=== PATIENT | female | born 1950 | race Caucasian/White ===

== ENCOUNTER 2022-12-11 07:51 | Inpatient (IN) | payer OTHER, MEDICAID ==
[2022-12-11] MEDS ORDERED: Iopamidol 370 76% 100 ML VIAL ONE (08:37)
[2022-12-11] MEDS ORDERED: Ipratropium/Albuterol 3 ML NEB ONE (08:58)
[2022-12-11] MEDS ORDERED: Magnesium 2 GM/50 ML BAG (IN WATER) ONE (08:58)
[2022-12-11] MEDS ORDERED: methylPREDNISolone Sod Succ/PF 125 MG/2 ML VIAL ONE (08:58)
[2022-12-11] MEDS ORDERED: Aspirin Chewable 81 MG TAB ONE ×2 (08:58→09:06)
[2022-12-11 09:01] LABS: #Eosinphils 0.1 thou/uL (0.0-0.7); #Lymphocytes 1.9 thou/uL (1.20-3.40); #Monocytes 1.1 thou/uL (0.11-0.59); #Neutrophils 7.9 thou/uL (1.40-6.50); %Basophils 0.1 % (0.0-1.0); %Eosinophils 1.3 % (0.0-10.0); %Lymphocytes 16.8 % (21.0-51.0); %Monocytes 10.1 % (0.0-10.0); %Neutrophils 71.6 % (42.0-75.0); Hemoglobin 11.5 g/dL (12.0-16.0); Mean Corpuscular HGB CONC 31.9 g/dL (32.0-36.0); Mean Corpuscular Hemoglobin 29.3 pg (27.0-31.0); Mean Corpuscular Volume 91.8 fl (78.0-98.0); Mean Platelet Volume 8.4 fL (7.4-10.4); Platelet Count 284 10x3/uL (130-400); RBC Distribution Width 13.6 % (11.5-14.5); Red Blood Cell (RBC) Count 3.92 mill/uL (4.20-5.40); White Blood Cell (WBC) Count 11.1 10x3/uL (4.8-10.8)
[2022-12-11] MEDS ORDERED: Vancomycin 1 GM/200 ML (FROZEN) BAG ONE (09:07)
[2022-12-11] MEDS ORDERED: Cefepime 2 GM VIAL ONE (09:07)
[2022-12-11 09:30] LABS: ALT (SGPT) 12 U/L (8-55); AST (SGOT) 19 U/L (5-34); Alkaline Phosphatase 108 U/L (40-110); Anion Gap 16 mmol/L (10-20); BUN (Urea Nitrogen) 18 mg/dL (9.8-20.1); Bilirubin, Total 0.4 mg/dL (0.2-1.2); Calc. Creatinine Clearance 0 mL/min (70-130); Calcium 9.3 mg/dL (7.8-10.44); Carbon Dioxide 27 mmol/L (23-31); Chloride 99 mmol/L (98-107); Estimated GFR 64; Glucose 100 mg/dL (83-110); Lipase 153 U/L (8-78); Potassium 4.1 mmol/L (3.5-5.1); Sodium 138 mmol/L (136-145)
[2022-12-11 09:58] LABS: Bacteria/HPF 4+ HPF (None Seen); Bilirubin Negative (Negative); Blood, Urine Negative (Negative); Clarity Clear (Clear); Glucose, Urine (Dipstick) Greater than 1000 mg/dL (Negative); Ketone, Urine Negative (Negative); Leukocyte 75 Leu/uL (Negative); Nitrite 2+ (Negative); Protein, Urine (Dipstick) 10 mg/dL (Neg-Trace); RBC/HPF 0-3 HPF (0-3); Specific Gravity, Urine 1.016 (1.002-1.036); Squamous Epithelial 0-3 HPF (0-3); Urobilinogen Normal mg/dL (Less than 2)
[2022-12-11 10:15] LABS: Actual Bicarbonate (HCO3v) 26 mEq/L (22-28); Base Excess 3.6 mEq/L (-2.0 to +3.0); Calcium, Ionized (venous) 0.99 mmol/L (1.16-1.32); Chloride (VBG) 100 mmol/L (98-106); Hemoglobin (Hb) 12.6 g/dL (11.7-16.1); Potassium (VBG) 3.95 mmol/L (3.70-5.30); Sodium 133.8 mmol/L (133-146); pH (venous) 7.53 (7.32-7.43)
[2022-12-11] MEDS ORDERED: Calcium Carbonate 500 MG ChewTAB PO PRN ×2 (11:30→21:13)
[2022-12-11] MEDS ORDERED: Senokot S 8.6-50 MG TAB PO PRN (11:30)
[2022-12-11] MEDS ORDERED: Acetaminophen 325 MG TAB PO PRN (11:30)
[2022-12-11] MEDS ORDERED: Ondansetron PF 4 MG/2 ML Vial IVP PRN ×2 (11:30→21:12)
[2022-12-11] MEDS ORDERED: Ipratropium/Albuterol 3 ML NEB NEB PRN (11:35)
[2022-12-11] MEDS ORDERED: Benzonatate 100 MG CAP PO PRN (11:43)
[2022-12-11] MEDS ORDERED: Polyethylene Glycol 3350 17 GM Packet PO PRN ×2 (12:03→21:18)
[2022-12-11 13:10] LABS: Troponin I Less than 0.010 ng/mL (< 0.028)
[2022-12-11 13:23] LABS: SARS-CoV-2 NAA Rapid Test Not Detected (NotDetected)
[2022-12-11 14:31] VITALS: BMI 43.3
[2022-12-11] MEDS: Sodium Chloride 0.9% 1,000 ML IV SCH (16:05)
[2022-12-11] MEDS ORDERED: Carvedilol 6.25 MG TAB PO SCH (17:00)
[2022-12-11] MEDS: Azithromycin 500 MG in Sodium Chloride 0.9% 250 ML 250 ML IVPB SCH (17:23)
[2022-12-11] MEDS ORDERED: Cefepime 2 GM in Sodium Chloride 0.9% 100 ML IVPB SCH (18:00)
[2022-12-11] MEDS ORDERED: Gabapentin 300 MG CAP PO SCH ×2 (21:00→21:30)
[2022-12-11] MEDS ORDERED: Sacubitril 49 MG/Valsartan 51 MG TABLET PO SCH ×2 (21:00→21:30)
[2022-12-11] MEDS ORDERED: Rosuvastatin 10 MG TAB PO SCH ×2 (21:00→21:30)
[2022-12-11] MEDS ORDERED: Nortriptyline 10 MG CAP PO SCH ×2 (21:00→21:30)
[2022-12-11] MEDS ORDERED: methylPREDNISolone Sod Succ 40 MG VIAL IVP SCH ×2 (21:00→21:30)
[2022-12-11] MEDS: Acetaminophen 325 MG TAB PO PRN (21:38)
[2022-12-11] MEDS: Benzonatate 100 MG CAP PO PRN (21:39)
[2022-12-11] MEDS ORDERED: Dextrose 50% Abboject 50 ML SYRINGE SLOW IVP PRN (22:04)
[2022-12-11] MEDS ORDERED: Dextrose 5% in Water 1,000 ML IV PRN (22:04)
[2022-12-11] MEDS: Ipratropium/Albuterol 3 ML NEB NEB PRN (22:07)
[2022-12-11] MEDS: HumaLOG 300 UNITS/3 ML VIAL SC PRN (23:23)
[2022-12-12] MEDS: Sodium Chloride 0.9% 1,000 ML IV SCH (05:10)
[2022-12-12] MEDS: HumaLOG 300 UNITS/3 ML VIAL SC PRN ×2 (05:57→17:48)
[2022-12-12] MEDS ORDERED: Empagliflozin 10 MG TAB PO SCH (09:00)
[2022-12-12] MEDS ORDERED: Venlafaxine HCl XR 75 MG CAP PO SCH (09:00)
[2022-12-12] MEDS ORDERED: Aspirin 81 mg Enteric Coated Tablet PO SCH (09:00)
[2022-12-12] MEDS ORDERED: Cefepime 1 GM in Sodium Chloride 0.9% 100 ML IVPB SCH (09:00)
[2022-12-12] MEDS: Gabapentin 300 MG CAP PO SCH ×2 (09:06→20:50)
[2022-12-12] MEDS: methylPREDNISolone Sod Succ 40 MG VIAL IVP SCH ×3 (09:06→22:38)
[2022-12-12] MEDS: Cefepime 1 GM in Sodium Chloride 0.9% 100 ML IVPB SCH ×3 (09:06→22:37)
[2022-12-12] MEDS: Carvedilol 6.25 MG TAB PO SCH ×2 (09:07→17:48)
[2022-12-12] MEDS: Empagliflozin 10 MG TAB PO SCH (09:07)
[2022-12-12] MEDS: Aspirin 81 mg Enteric Coated Tablet PO SCH (09:07)
[2022-12-12] MEDS: Venlafaxine HCl XR 75 MG CAP PO SCH (09:07)
[2022-12-12] MEDS: Sacubitril 49 MG/Valsartan 51 MG TABLET PO SCH ×2 (09:08→20:51)
[2022-12-12] MEDS: Acetaminophen 325 MG TAB PO PRN ×2 (13:20→23:28)
[2022-12-12] MEDS: Ipratropium/Albuterol 3 ML NEB NEB PRN (13:20)
[2022-12-12] MEDS: Hydroxychloroquine Sulfate 200 MG TAB PO SCH (13:20)
[2022-12-12] MEDS: Benzonatate 100 MG CAP PO PRN ×2 (13:20→22:49)
[2022-12-12] MEDS: Azithromycin 500 MG in Sodium Chloride 0.9% 250 ML 250 ML IVPB SCH (15:46)
[2022-12-12] MEDS: Rosuvastatin 10 MG TAB PO SCH (20:51)
[2022-12-12] MEDS: Nortriptyline 10 MG CAP PO SCH (20:51)
[2022-12-13 05:01] LABS: #Basophils 0.1 thou/uL (0.0-0.2); #Lymphocytes 0.7 thou/uL (1.20-3.40); #Monocytes 0.4 thou/uL (0.11-0.59); #Neutrophils 10.7 thou/uL (1.40-6.50); %Basophils 0.5 % (0.0-1.0); %Eosinophils 0.1 % (0.0-10.0); %Lymphocytes 6.1 % (21.0-51.0); %Monocytes 3.1 % (0.0-10.0); %Neutrophils 90.2 % (42.0-75.0); Hemoglobin 11.3 g/dL (12.0-16.0); Mean Corpuscular HGB CONC 32.8 g/dL (32.0-36.0); Mean Corpuscular Hemoglobin 30.4 pg (27.0-31.0); Mean Corpuscular Volume 92.7 fl (78.0-98.0); Mean Platelet Volume 8.8 fL (7.4-10.4); Platelet Count 273 10x3/uL (130-400); RBC Distribution Width 13.5 % (11.5-14.5); Red Blood Cell (RBC) Count 3.71 mill/uL (4.20-5.40); White Blood Cell (WBC) Count 11.8 10x3/uL (4.8-10.8)
[2022-12-13 05:20] LABS: Anion Gap 15 mmol/L (10-20); BUN (Urea Nitrogen) 17 mg/dL (9.8-20.1); Calc. Creatinine Clearance 93 mL/min (70-130); Carbon Dioxide 20 mmol/L (23-31); Chloride 106 mmol/L (98-107); Estimated GFR 78; Glucose 243 mg/dL (83-110); Magnesium 2.1 mg/dL (1.6-2.6); Sodium 137 mmol/L (136-145)
[2022-12-13] MEDS: Aspirin 81 mg Enteric Coated Tablet PO SCH (09:44)
[2022-12-13] MEDS: Cefepime 1 GM in Sodium Chloride 0.9% 100 ML IVPB SCH ×2 (09:44→21:18)
[2022-12-13] MEDS: Carvedilol 6.25 MG TAB PO SCH ×2 (09:44→16:42)
[2022-12-13] MEDS: Gabapentin 300 MG CAP PO SCH ×2 (09:45→21:18)
[2022-12-13] MEDS: Empagliflozin 10 MG TAB PO SCH (09:45)
[2022-12-13] MEDS: Venlafaxine HCl XR 75 MG CAP PO SCH (09:46)
[2022-12-13] MEDS: Sacubitril 49 MG/Valsartan 51 MG TABLET PO SCH ×2 (09:46→21:18)
[2022-12-13] MEDS: Hydroxychloroquine Sulfate 200 MG TAB PO SCH (09:47)
[2022-12-13] MEDS: methylPREDNISolone Sod Succ 40 MG VIAL IVP SCH ×2 (09:47→21:17)
[2022-12-13] MEDS ORDERED: Furosemide 40 MG TAB PO SCH (12:45)
[2022-12-13] MEDS: Azithromycin 500 MG in Sodium Chloride 0.9% 250 ML 250 ML IVPB SCH (15:34)
[2022-12-13] MEDS: Artificial Tear Sol 15 ML BOT EA EYE PRN (16:42)
[2022-12-13] MEDS: Acetaminophen 325 MG TAB PO PRN (16:44)
[2022-12-13] MEDS: HumaLOG 300 UNITS/3 ML VIAL SC PRN ×2 (17:58→21:21)
[2022-12-13] MEDS: Senokot S 8.6-50 MG TAB PO PRN (17:59)
[2022-12-13] MEDS: Rosuvastatin 10 MG TAB PO SCH (21:18)
[2022-12-13] MEDS: Nortriptyline 10 MG CAP PO SCH (21:18)
[2022-12-14] MEDS: Acetaminophen 325 MG TAB PO PRN (03:23)
[2022-12-14] MEDS: Ipratropium/Albuterol 3 ML NEB NEB PRN (03:24)
[2022-12-14 03:58] LABS: #Lymphocytes 1.1 thou/uL (1.20-3.40); #Monocytes 0.5 thou/uL (0.11-0.59); #Neutrophils 8.7 thou/uL (1.40-6.50); %Basophils 0.1 % (0.0-1.0); %Eosinophils 0.1 % (0.0-10.0); %Lymphocytes 10.4 % (21.0-51.0); %Monocytes 4.4 % (0.0-10.0); Hemoglobin 11.8 g/dL (12.0-16.0); Mean Corpuscular HGB CONC 33.2 g/dL (32.0-36.0); Mean Corpuscular Hemoglobin 30.5 pg (27.0-31.0); Mean Corpuscular Volume 91.8 fl (78.0-98.0); Mean Platelet Volume 8.8 fL (7.4-10.4); Platelet Count 270 10x3/uL (130-400); RBC Distribution Width 13.2 % (11.5-14.5); Red Blood Cell (RBC) Count 3.88 mill/uL (4.20-5.40); White Blood Cell (WBC) Count 10.2 10x3/uL (4.8-10.8)
[2022-12-14 04:22] LABS: Anion Gap 16 mmol/L (10-20); BUN (Urea Nitrogen) 20 mg/dL (9.8-20.1); Calc. Creatinine Clearance 95 mL/min (70-130); Calcium 9.3 mg/dL (7.8-10.44); Carbon Dioxide 23 mmol/L (23-31); Chloride 100 mmol/L (98-107); Estimated GFR 83; Glucose 207 mg/dL (83-110); Magnesium 1.9 mg/dL (1.6-2.6); Potassium 3.8 mmol/L (3.5-5.1); Sodium 135 mmol/L (136-145)
[2022-12-14] MEDS: HumaLOG 300 UNITS/3 ML VIAL SC PRN ×2 (06:06→21:02)
[2022-12-14] MEDS: Carvedilol 6.25 MG TAB PO SCH ×2 (10:20→18:18)
[2022-12-14] MEDS: Azithromycin 250 MG TAB PO SCH (10:21)
[2022-12-14] MEDS: Aspirin 81 mg Enteric Coated Tablet PO SCH (10:21)
[2022-12-14] MEDS: methylPREDNISolone Sod Succ 40 MG VIAL IVP SCH ×2 (10:22→21:01)
[2022-12-14] MEDS: Empagliflozin 10 MG TAB PO SCH (10:22)
[2022-12-14] MEDS: Gabapentin 300 MG CAP PO SCH ×2 (10:23→21:01)
[2022-12-14] MEDS: Furosemide 40 MG TAB PO SCH (10:23)
[2022-12-14] MEDS: Venlafaxine HCl XR 75 MG CAP PO SCH (10:23)
[2022-12-14] MEDS: Sacubitril 49 MG/Valsartan 51 MG TABLET PO SCH ×2 (10:24→21:01)
[2022-12-14] MEDS: Hydroxychloroquine Sulfate 200 MG TAB PO SCH (10:26)
[2022-12-14] MEDS ORDERED: Furosemide 40 MG/4 ML VIAL SLOW IVP SCH (11:00)
[2022-12-14] MEDS: Cefepime 1 GM in Sodium Chloride 0.9% 100 ML IVPB SCH ×2 (16:37→21:01)
[2022-12-14] MEDS: Nortriptyline 10 MG CAP PO SCH (21:01)
[2022-12-14] MEDS: Rosuvastatin 10 MG TAB PO SCH (21:01)
[2022-12-15] MEDS: Acetaminophen 325 MG TAB PO PRN ×2 (04:32→20:24)
[2022-12-15 04:46] LABS: #Lymphocytes 1.3 thou/uL (1.20-3.40); #Monocytes 0.6 thou/uL (0.11-0.59); #Neutrophils 8.3 thou/uL (1.40-6.50); %Basophils 0.1 % (0.0-1.0); %Eosinophils 0.1 % (0.0-10.0); %Lymphocytes 12.7 % (21.0-51.0); %Monocytes 5.5 % (0.0-10.0); %Neutrophils 81.6 % (42.0-75.0); Hemoglobin 13.1 g/dL (12.0-16.0); Mean Corpuscular HGB CONC 32.9 g/dL (32.0-36.0); Mean Corpuscular Hemoglobin 29.9 pg (27.0-31.0); Mean Corpuscular Volume 90.9 fl (78.0-98.0); Mean Platelet Volume 8.9 fL (7.4-10.4); Platelet Count 277 10x3/uL (130-400); RBC Distribution Width 13.3 % (11.5-14.5); Red Blood Cell (RBC) Count 4.36 mill/uL (4.20-5.40); White Blood Cell (WBC) Count 10.2 10x3/uL (4.8-10.8)
[2022-12-15 05:11] LABS: Anion Gap 18 mmol/L (10-20); BUN (Urea Nitrogen) 25 mg/dL (9.8-20.1); Calc. Creatinine Clearance 77 mL/min (70-130); Calcium 9.6 mg/dL (7.8-10.44); Carbon Dioxide 26 mmol/L (23-31); Chloride 95 mmol/L (98-107); Estimated GFR 66; Glucose 265 mg/dL (83-110); Magnesium 1.8 mg/dL (1.6-2.6); Potassium 3.6 mmol/L (3.5-5.1); Sodium 135 mmol/L (136-145)
[2022-12-15] MEDS: Carvedilol 6.25 MG TAB PO SCH ×2 (09:57→17:39)
[2022-12-15] MEDS: Gabapentin 300 MG CAP PO SCH ×2 (10:01→20:20)
[2022-12-15] MEDS: Aspirin 81 mg Enteric Coated Tablet PO SCH (10:03)
[2022-12-15] MEDS: Venlafaxine HCl XR 75 MG CAP PO SCH (10:03)
[2022-12-15] MEDS: Azithromycin 250 MG TAB PO SCH (10:04)
[2022-12-15] MEDS: Empagliflozin 10 MG TAB PO SCH (10:05)
[2022-12-15] MEDS: Sacubitril 49 MG/Valsartan 51 MG TABLET PO SCH ×2 (10:05→20:41)
[2022-12-15] MEDS: Furosemide 40 MG TAB PO SCH (10:05)
[2022-12-15] MEDS: Cefepime 1 GM in Sodium Chloride 0.9% 100 ML IVPB SCH ×2 (10:06→20:18)
[2022-12-15] MEDS: Artificial Tear Sol 15 ML BOT EA EYE PRN (10:08)
[2022-12-15] MEDS: Hydroxychloroquine Sulfate 200 MG TAB PO SCH (10:15)
[2022-12-15] MEDS: methylPREDNISolone Sod Succ 40 MG VIAL IVP SCH ×2 (10:15→20:22)
[2022-12-15] MEDS ORDERED: Potassium Chloride 20 MEQ TAB PO SCH (10:45)
[2022-12-15] MEDS ORDERED: Magnesium 2 GM/50 ML(in water) 2 GM in Premix Bag 1 BAG IVPB SCH (10:45)
[2022-12-15] MEDS: Benzonatate 100 MG CAP PO PRN ×2 (12:16→20:50)
[2022-12-15] MEDS: HumaLOG 300 UNITS/3 ML VIAL SC PRN ×2 (12:16→20:25)
[2022-12-15] MEDS ORDERED: guaiFENesin ER 600 MG TAB PO SCH (12:45)
[2022-12-15] MEDS ORDERED: Furosemide 20 MG/2 ML VIAL SLOW IVP SCH (14:00)
[2022-12-15] MEDS: guaiFENesin ER 600 MG TAB PO SCH (20:21)
[2022-12-15] MEDS: Rosuvastatin 10 MG TAB PO SCH (20:22)
[2022-12-15] MEDS: Nortriptyline 10 MG CAP PO SCH (20:41)
[2022-12-15] MEDS ORDERED: Insulin Glargine 30 UNITS/0.3 ML VIAL SC SCH (21:00)
[2022-12-16] MEDS: HumaLOG 300 UNITS/3 ML VIAL SC PRN ×3 (05:53→17:01)
[2022-12-16 05:57] VITALS: TEMP 97.6
[2022-12-16 06:56] LABS: #Lymphocytes 1.5 thou/uL (1.20-3.40); #Monocytes 0.7 thou/uL (0.11-0.59); #Neutrophils 8.4 thou/uL (1.40-6.50); %Basophils 0.1 % (0.0-1.0); %Lymphocytes 14.3 % (21.0-51.0); %Monocytes 6.1 % (0.0-10.0); %Neutrophils 79.5 % (42.0-75.0); Mean Corpuscular HGB CONC 32.2 g/dL (32.0-36.0); Mean Corpuscular Hemoglobin 29.5 pg (27.0-31.0); Mean Corpuscular Volume 91.7 fl (78.0-98.0); Mean Platelet Volume 8.8 fL (7.4-10.4); Platelet Count 287 10x3/uL (130-400); RBC Distribution Width 13.5 % (11.5-14.5); Red Blood Cell (RBC) Count 4.41 mill/uL (4.20-5.40); White Blood Cell (WBC) Count 10.6 10x3/uL (4.8-10.8)
[2022-12-16 07:19] LABS: Anion Gap 15 mmol/L (10-20); BUN (Urea Nitrogen) 29 mg/dL (9.8-20.1); Calc. Creatinine Clearance 82 mL/min (70-130); Calcium 9.3 mg/dL (7.8-10.44); Carbon Dioxide 29 mmol/L (23-31); Chloride 94 mmol/L (98-107); Estimated GFR 71; Glucose 275 mg/dL (83-110); Potassium 3.9 mmol/L (3.5-5.1); Sodium 134 mmol/L (136-145)
[2022-12-16] MEDS: Carvedilol 6.25 MG TAB PO SCH ×2 (08:26→17:01)
[2022-12-16] MEDS: Furosemide 40 MG TAB PO SCH (08:27)
[2022-12-16] MEDS: Sacubitril 49 MG/Valsartan 51 MG TABLET PO SCH (08:27)
[2022-12-16] MEDS: Azithromycin 250 MG TAB PO SCH (08:27)
[2022-12-16] MEDS: Empagliflozin 10 MG TAB PO SCH (08:27)
[2022-12-16] MEDS: Gabapentin 300 MG CAP PO SCH (08:27)
[2022-12-16] MEDS: Hydroxychloroquine Sulfate 200 MG TAB PO SCH (08:28)
[2022-12-16] MEDS: methylPREDNISolone Sod Succ 40 MG VIAL IVP SCH (08:28)
[2022-12-16] MEDS: Cefepime 1 GM in Sodium Chloride 0.9% 100 ML IVPB SCH (08:28)
[2022-12-16] MEDS: Aspirin 81 mg Enteric Coated Tablet PO SCH (08:28)
[2022-12-16] MEDS: Venlafaxine HCl XR 75 MG CAP PO SCH (08:28)
[2022-12-16] MEDS: guaiFENesin ER 600 MG TAB PO SCH (08:28)
[2022-12-16] MEDS: Benzonatate 100 MG CAP PO PRN (09:28)
[2022-12-16] MEDS: Senokot S 8.6-50 MG TAB PO PRN (11:35)
[2022-12-16 16:51] VITALS: BP 127/59
== END 2022-12-16 18:50 | DRG 194 ==
LOC: SUATTDRO 07:51 → ERS 07:51 → 2NO 11:21 → UNDODISIN 15:26 → T4-B 12-15 16:45
PROVIDERS: ADMIT Internal Medicine; ATTEND Internal Medicine
DX: J18.9 Pneumonia, unspecified organism (principal); N39.0 Urinary tract infection, site not specified; I25.10 Atherosclerotic heart disease of native coronary artery without angina pectoris; K21.9 Gastro-esophageal reflux disease without esophagitis; K59.00 Constipation, unspecified; E78.5 Hyperlipidemia, unspecified; I11.0 Hypertensive heart disease with heart failure; F41.9 Anxiety disorder, unspecified; F32.A Depression, unspecified; M06.9 Rheumatoid arthritis, unspecified; I50.9 Heart failure, unspecified; Z95.1 Presence of aortocoronary bypass graft; Z98.51 Tubal ligation status; Z88.8 Allergy status to other drugs, medicaments and biological substances; Z79.82 Long term (current) use of aspirin; Z79.899 Other long term (current) drug therapy
CPT/HCPCS: 36415; 36416; 51701; 71045; 71275; 74177; 76536; 80048; 80053; 81003; 81015; 82010; 82805; 83605; 83690; 83735; 83880; 84145; 84484; 85025; 87040; 87070; 87077; 87086; 87186; 87205; 93005; 94640; 96365; 96367; 96368; 96375; J0456; J0692; J1650; J1815; J1940; J1956; J2920; J2930; J3370-JW; J3475; J3490; J7050; J7620; Q9967

== ENCOUNTER 2023-08-05 00:44 | Inpatient (IN) | payer OTHER, MEDICAID, MEDICARE ==
[2023-08-05 01:38] LABS: #Eosinphils 0.2 thou/uL (0.0-0.7); #Monocytes 0.8 thou/uL (0.11-0.59); #Neutrophils 3.6 thou/uL (1.40-6.50); %Basophils 0.4 % (0.0-1.0); %Lymphocytes 41.7 % (21.0-51.0); %Monocytes 9.7 % (0.0-10.0); %Neutrophils 46.1 % (42.0-75.0); Hematocrit 31.5 % (36.0-47.0); Hemoglobin 10.2 g/dL (12.0-16.0); Mean Corpuscular HGB CONC 32.4 g/dL (32.0-36.0); Mean Corpuscular Hemoglobin 30.6 pg (27.0-31.0); Mean Corpuscular Volume 94.6 fl (78.0-98.0); Mean Platelet Volume 10.6 fL (7.4-10.4); Platelet Count 252 10x3/uL (130-400); RBC Distribution Width 14.6 % (11.5-14.5); Red Blood Cell (RBC) Count 3.33 mill/uL (4.20-5.40); White Blood Cell (WBC) Count 7.9 10x3/uL (4.8-10.8)
[2023-08-05 01:52] LABS: PTT 27.1 sec (22.9-36.1); Prothrombin Time 13.2 sec (12.0-14.7)
[2023-08-05 02:02] LABS: ALT (SGPT) 13 U/L (8-55); AST (SGOT) 16 U/L (5-34); Albumin 4.4 g/dL (3.4-4.8); Alkaline Phosphatase 132 U/L (40-110); Anion Gap 16 mmol/L (10-20); BUN (Urea Nitrogen) 45 mg/dL (9.8-20.1); Bilirubin, Total 0.3 mg/dL (0.2-1.2); Calc. Creatinine Clearance 0 mL/min (70-130); Calcium 9.9 mg/dL (7.8-10.44); Carbon Dioxide 25 mmol/L (23-31); Chloride 98 mmol/L (98-107); Estimated GFR 37; Globulin 2.9 g/dL (2.4-3.5); Glucose 173 mg/dL (83-110); Potassium 4.3 mmol/L (3.5-5.1); Protein, Total 7.3 g/dL (5.8-8.1); Sodium 135 mmol/L (136-145)
[2023-08-05] MEDS ORDERED: Acetaminophen 500 MG TAB ONE (02:29)
[2023-08-05] MEDS ORDERED: diphenhydrAMINE 50 MG/ML VIAL ONE (03:27)
[2023-08-05] MEDS ORDERED: diphenhydrAMINE 12.5 MG/5 ML UDCUP ONE (03:27)
[2023-08-05] MEDS ORDERED: Prochlorperazine 10 MG/2 ML VIAL ONE (03:27)
[2023-08-05 03:59] LABS: Magnesium 2.3 mg/dL (1.6-2.6)
[2023-08-05 04:05] LABS: Troponin I Less than 0.010 ng/mL (< 0.028)
[2023-08-05 05:18] VITALS: BMI 39.5
[2023-08-05 05:30] LABS: Troponin I Less than 0.010 ng/mL (< 0.028)
[2023-08-05] MEDS ORDERED: Senokot 8.6 MG TAB PO PRN (08:12)
[2023-08-05] MEDS ORDERED: Metoclopramide HCl 10 MG/2 ML VIAL IVP SCH ×2 (08:15→18:00)
[2023-08-05] MEDS ORDERED: Sodium Chloride 0.9% 1,000 ML IV SCH (08:15)
[2023-08-05] MEDS ORDERED: Metoclopramide HCl 10 MG/2 ML VIAL ONE (08:22)
[2023-08-05] MEDS ORDERED: SUMAtriptan Succinate 6 MG/0.5 ML VIAL ONE ×2 (08:22→09:41)
[2023-08-05] MEDS: SUMAtriptan Succinate 6 MG/0.5 ML VIAL SC PRN ×2 (08:27→09:49)
[2023-08-05] MEDS ORDERED: Cholecalciferol 1,000 UNITS (25 MCG) TAB ONE (08:31)
[2023-08-05] MEDS ORDERED: Aspirin Chewable 81 MG TAB ONE (08:31)
[2023-08-05 08:35] LABS: Troponin I Less than 0.010 ng/mL (< 0.028)
[2023-08-05] MEDS: Aspirin Chewable 81 MG TAB PO SCH (08:59)
[2023-08-05] MEDS: Gabapentin 300 MG CAP PO SCH ×2 (09:00→20:19)
[2023-08-05] MEDS: Cholecalciferol 1,000 UNITS (25 MCG) TAB PO SCH (09:00)
[2023-08-05] MEDS: Carvedilol 6.25 MG TAB PO SCH ×2 (09:00→20:21)
[2023-08-05] MEDS: Sacubitril 49 MG/Valsartan 51 MG TABLET PO SCH ×2 (09:06→20:20)
[2023-08-05] MEDS: Heparin 5,000 UNITS/ML VIAL SC SCH ×3 (09:06→20:22)
[2023-08-05] MEDS: Hydroxychloroquine Sulfate 200 MG TAB PO SCH (09:06)
[2023-08-05] MEDS: Venlafaxine 75 MG TAB PO SCH (09:07)
[2023-08-05 09:34] LABS: Bilirubin Negative (Negative); Blood, Urine Negative (Negative); CAUTI Indications for Culture Alt mental st,lethar; Clarity Clear (Clear); Glucose, Urine (Dipstick) >=1000 mg/dL (Negative); Ketone, Urine Negative (Negative); Leukocyte 500 Leu/uL (Negative); Nitrite Negative (Negative); Protein, Urine (Dipstick) Negative (Neg-Trace); RBC/HPF 0-3 HPF (0-3); Specific Gravity, Urine 1.023 (1.002-1.036); Squamous Epithelial 0-3 HPF (0-3); Urobilinogen Normal mg/dL (Less than 2); WBC/HPF Greater than 50 HPF (0-3)
[2023-08-05 09:35] LABS: Bacteria/HPF 1+ HPF (None Seen)
[2023-08-05 09:36] LABS: Urine Culture Reflex Yes Yes
[2023-08-05] MEDS ORDERED: Acetaminophen 325 MG TAB ONE (09:40)
[2023-08-05] MEDS: Sodium Chloride 0.9% 1,000 ML IV SCH ×2 (09:44→16:16)
[2023-08-05] MEDS: Acetaminophen 325 MG TAB PO PRN ×3 (09:50→20:20)
[2023-08-05] MEDS ORDERED: Iopamidol-370 76% 500 ML MDV (1 ML CHARGE) ONE (13:04)
[2023-08-05] MEDS ORDERED: Valproate Sodium 500 MG in Sodium Chloride 0.9% 100 ML IVPB SCH (17:45)
[2023-08-05] MEDS ORDERED: Sodium Chloride 0.9% 500 ML IV SCH (18:00)
[2023-08-05] MEDS: Rosuvastatin 5 MG TAB PO SCH (20:19)
[2023-08-05] MEDS: Loratadine 10 MG TAB PO SCH (20:21)
[2023-08-05] MEDS: Nortriptyline 10 MG CAP PO SCH (20:22)
[2023-08-06] MEDS ORDERED: Ketorolac Tromethamine 30 MG/ML VIAL IVP SCH ×2 (00:30→08:15)
[2023-08-06 04:17] LABS: #Eosinphils 0.2 thou/uL (0.0-0.7); #Monocytes 0.7 thou/uL (0.11-0.59); #Neutrophils 3.7 thou/uL (1.40-6.50); %Basophils 0.3 % (0.0-1.0); %Eosinophils 2.4 % (0.0-10.0); %Lymphocytes 30.7 % (21.0-51.0); %Monocytes 10.5 % (0.0-10.0); Hematocrit 28.7 % (36.0-47.0); Hemoglobin 9.3 g/dL (12.0-16.0); Mean Corpuscular HGB CONC 32.4 g/dL (32.0-36.0); Mean Corpuscular Hemoglobin 30.7 pg (27.0-31.0); Mean Corpuscular Volume 94.7 fl (78.0-98.0); Mean Platelet Volume 10.6 fL (7.4-10.4); Platelet Count 232 10x3/uL (130-400); RBC Distribution Width 14.7 % (11.5-14.5); Red Blood Cell (RBC) Count 3.03 mill/uL (4.20-5.40); White Blood Cell (WBC) Count 6.7 10x3/uL (4.8-10.8)
[2023-08-06] MEDS: Acetaminophen 325 MG TAB PO PRN ×3 (04:42→20:16)
[2023-08-06 04:45] LABS: ALT (SGPT) 15 U/L (8-55); AST (SGOT) 28 U/L (5-34); Albumin 3.8 g/dL (3.4-4.8); Alkaline Phosphatase 100 U/L (40-110); Anion Gap 12 mmol/L (10-20); BUN (Urea Nitrogen) 33 mg/dL (9.8-20.1); Bilirubin, Total 0.2 mg/dL (0.2-1.2); Calc. Creatinine Clearance 63 mL/min (70-130); Calcium 8.8 mg/dL (7.8-10.44); Carbon Dioxide 25 mmol/L (23-31); Chloride 107 mmol/L (98-107); Estimated GFR 46; Globulin 2.5 g/dL (2.4-3.5); Glucose 114 mg/dL (83-110); Potassium 4.4 mmol/L (3.5-5.1); Protein, Total 6.3 g/dL (5.8-8.1); Sodium 140 mmol/L (136-145)
[2023-08-06] MEDS ORDERED: Dexamethasone 10 MG/ML VIAL SLOW IVP SCH (08:15)
[2023-08-06] MEDS ORDERED: Sodium Chloride 0.9% 1,000 ML IV SCH (08:15)
[2023-08-06] MEDS ORDERED: Metoclopramide HCl 10 MG/2 ML VIAL IVP SCH (08:15)
[2023-08-06] MEDS: Sodium Chloride 0.9% 1,000 ML IV SCH ×3 (08:22→17:39)
[2023-08-06] MEDS: Hydroxychloroquine Sulfate 200 MG TAB PO SCH (08:52)
[2023-08-06] MEDS: Venlafaxine 75 MG TAB PO SCH (08:52)
[2023-08-06] MEDS: Gabapentin 300 MG CAP PO SCH ×2 (08:53→20:16)
[2023-08-06] MEDS: Cholecalciferol 1,000 UNITS (25 MCG) TAB PO SCH (08:53)
[2023-08-06] MEDS: Heparin 5,000 UNITS/ML VIAL SC SCH ×3 (08:53→20:16)
[2023-08-06] MEDS: Aspirin Chewable 81 MG TAB PO SCH (08:53)
[2023-08-06] MEDS: Carvedilol 6.25 MG TAB PO SCH ×2 (09:02→20:15)
[2023-08-06] MEDS: Sacubitril 49 MG/Valsartan 51 MG TABLET PO SCH ×2 (09:03→20:16)
[2023-08-06] MEDS ORDERED: Lorazepam 2 MG/ML VIAL SLOW IVP PRN (11:00)
[2023-08-06] MEDS: Prochlorperazine Edisylate 10 MG in Sodium Chloride 0.9% 50 ML IVPB SCH ×2 (12:57→17:39)
[2023-08-06] MEDS: diphenhydrAMINE 50 MG/ML VIAL IVP SCH ×2 (12:57→17:39)
[2023-08-06] MEDS: Nortriptyline 10 MG CAP PO SCH (20:15)
[2023-08-06] MEDS: Rosuvastatin 5 MG TAB PO SCH (20:15)
[2023-08-06] MEDS: Loratadine 10 MG TAB PO SCH (20:16)
[2023-08-07] MEDS: Prochlorperazine Edisylate 10 MG in Sodium Chloride 0.9% 50 ML IVPB SCH ×3 (00:14→11:53)
[2023-08-07] MEDS: diphenhydrAMINE 50 MG/ML VIAL IVP SCH ×2 (00:14→05:39)
[2023-08-07] MEDS: Sodium Chloride 0.9% 1,000 ML IV SCH ×3 (00:15→16:12)
[2023-08-07] MEDS: Sacubitril 49 MG/Valsartan 51 MG TABLET PO SCH (08:25)
[2023-08-07] MEDS: Hydroxychloroquine Sulfate 200 MG TAB PO SCH (08:25)
[2023-08-07] MEDS: Carvedilol 6.25 MG TAB PO SCH (08:26)
[2023-08-07] MEDS: Gabapentin 300 MG CAP PO SCH (08:26)
[2023-08-07] MEDS: Venlafaxine 75 MG TAB PO SCH (08:27)
[2023-08-07] MEDS: Cholecalciferol 1,000 UNITS (25 MCG) TAB PO SCH (08:27)
[2023-08-07] MEDS: Aspirin Chewable 81 MG TAB PO SCH (08:27)
[2023-08-07] MEDS: Heparin 5,000 UNITS/ML VIAL SC SCH ×2 (08:29→16:12)
[2023-08-07 16:40] VITALS: BP 153/67; TEMP 97.7
== END 2023-08-07 17:40 | DRG 103 ==
LOC: ERS 00:44 → ERHOLD 04:48 → 2SE 15:46 → OBSVTOIN 08-06 17:05
PROVIDERS: ADMIT Family Medicine; ATTEND Internal Medicine
DX: G43.919 Migraine, unspecified, intractable, without status migrainosus (principal); N17.9 Acute kidney failure, unspecified; I69.354 Hemiplegia and hemiparesis following cerebral infarction affecting left non-dominant side; I11.0 Hypertensive heart disease with heart failure; I50.9 Heart failure, unspecified; I25.10 Atherosclerotic heart disease of native coronary artery without angina pectoris; K59.00 Constipation, unspecified; E04.1 Nontoxic single thyroid nodule; F41.9 Anxiety disorder, unspecified; F32.A Depression, unspecified; D50.9 Iron deficiency anemia, unspecified; E11.9 Type 2 diabetes mellitus without complications; Z95.1 Presence of aortocoronary bypass graft; Z88.8 Allergy status to other drugs, medicaments and biological substances; Z79.82 Long term (current) use of aspirin; Z79.899 Other long term (current) drug therapy; Z90.49 Acquired absence of other specified parts of digestive tract; Z90.710 Acquired absence of both cervix and uterus; Z98.51 Tubal ligation status; Z87.39 Personal history of other diseases of the musculoskeletal system and connective tissue; M06.9 Rheumatoid arthritis, unspecified; Z87.440 Personal history of urinary (tract) infections; E78.5 Hyperlipidemia, unspecified
CPT/HCPCS: 36415; 70496; 70498; 70551; 80053; 81001; 83735; 83880; 84443; 84484; 85025; 85610; 85730; 87086; 93005; 93306; 96361; 96365; 96372; 96375; 96376; G0378; J0780; J1100; J1200; J1644; J1885; J2060; J2765; J3030; J3490; J7030; J7050; Q0163; Q9967